=== PATIENT | female | born 1940 | race Caucasian/White ===

== ENCOUNTER → 2016-07-22 | Outpatient (CLI) | payer MEDICARE, OTHER ==
[~2016-07-22] MED LIST: BIOT800T PO; CYAN100010 PO; CYAN10006 INJ; DIGO125T17 PO; HYAL1CAP PO; LIOT5TAB9 PO; OMEG1CAP31 PO; PROG100C6 PO; THYR60TA PO; UBID100C10 PO; [UNRECOGNIZED DRUG - CODE] PO; [UNRECOGNIZED DRUG - OTHER] PO
== END ==
LOC: WC.BC 08:50
DX: Z12.31 Encounter for screening mammogram for malignant neoplasm of breast (principal)
CPT/HCPCS: 77063; G0202